=== PATIENT | female | born 1990 | race African-American/Black ===

== ENCOUNTER 2016-08-27 23:37 | Emergency (ER) | payer SELFPAY ==
--- NOTE | ~2016-08-27 | CR210 ---
[facility] A Service of [facility] & [facility] RADIOLOGY TEXT RESULTS PATIENT: POLY SHAY LOCATION: [facility] : [birth year] UNIT #: [id number] AGE: [address]: Jeimy Hankins MD SEX: F ORDER DR: [id number] [facility] [address] [place], [place] [address] [id number] E MR#: [id number] Acc #: [id number] NAME: POLY SHAY : 1990 SEX: F STUDY DATE/TIME: 08/28/2016 0:41 UNIT: [facility] ROOM: STUDY DESCRIPTION: CR Ribs Uni 2 View W PA Ch Lt Attending Physician: Jeimy Hankins M.D. Ordering Physician: Jeimy Hankins M.D. Primary Care Physician: No Primary Care Physician MEDICAL IMAGING REPORT This report is preliminary unless electronic signature is present EXAM Frontal chest and a left rib series, 08/28/2016. INDICATIONS Rib pain and cough and shortness of air in a 26-year-old female for 2 days since Saturday. TECHNIQUE Frontal chest and 2 views left ribs. COMPARISON 04/28/2016 FINDINGS Cardiac silhouette within normal limits for technique. The vascularity is unremarkable. Lungs clear. No pneumothorax. No rib fracture. IMPRESSION 1. Negative frontal chest and left rib series. Dictated by... Jhonathan Leal M.D. THIS IS AN ELECTRONICALLY VERIFIED REPORT Jhonathan Leal M.D. at 08/28/2016 9:58 PM Livan TD: 08/28/2016 09:53 JOB #: [id number] MEDICAL IMAGING REPORT Page 1 of 1 COPY
[2016-08-28 00:01] LABS: BASOPHIL% 0.6 % (0-2.5); EOSINOPHIL# 0.1 X10e3 (0-0.7); EOSINOPHIL% 0.8 % (0.0-7.0); HEMATOCRIT 38.1 % (35.0-45.0); HEMOGLOBIN 12.4 gm/dL (12.0-16.0); MEAN CORPUSCULAR HGB CONC 32.6 g/dL (30-36); MEAN PLATELET VOLUME 7.5 FL (6.5-11.5); MONOCYTE# 0.5 X10e3 (0-1.0); MONOCYTE% 7.3 % (3.0-12.0); NEUTROPHIL# 4.5 X10e3 (1.5-7.1); NEUTROPHIL% 63.3 % (40-75); PLATELET COUNT 239 X10e3 (140-420); RED BLOOD COUNT 4.42 X10e (3.90-5.30); RED CELL DISTRIBUTION WIDTH 13.6 % (11.0-15.5); WHITE BLOOD COUNT 7.1 X10e3 (4.0-10.5)
[2016-08-28 00:02] LABS: DIFF IND NO
[2016-08-28 00:20] LABS: BUN/CREATININE RATIO 12.5; CALCIUM SERUM 8.8 mg/dL (8.4-10.2); CREATININE SERUM 1.2 mg/dL (0.6-1.4); GLOM FILT RATE Estimated 71.2 mL/min (>60); POTASSIUM 3.8 mmol/L (3.5-5.1)
== END 2016-08-28 03:09 | disposition home or self-care (01) ==
LOC: CED 23:37
PROVIDERS: Emergency Medicine
DX: R07.81 Pleurodynia (principal); R05 Cough; R06.02 Shortness of breath; W19.XXXA Unspecified fall, initial encounter
CPT/HCPCS: 36415; 71101; 80048; 85025; 85379; 94640; 99284

== ENCOUNTER 2016-10-08 23:59 | Emergency (ER) | payer OTHER ==
--- NOTE | ~2016-10-08 | EKG ---
PATIENT: POLY SHAY UNIT #: [id number] Ventricular Rate: 76 BPM Atrial Rate: 76 BPM P-R Interval: 154 ms QRS Duration: 84 ms Q-T Interval: 376 ms QTC Calculation(Bezet): 423 ms P [place]: 29 degrees Calculated R [place]: 47 degrees Calculated T [place]: 38 degrees Diagnosis Line: Normal sinus rhythm Diagnosis Line: Normal ECG Diagnosis Line: No previous ECGs available Diagnosis Line: Confirmed by VIVIANE ROBERSON MD ([id number]) on 10/10/2016 Diagnosis Line: 9:49:53 AM INTERPRETING MD: KAROL FREITAS
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
== END 2016-10-09 00:25 | disposition home or self-care (01) ==
LOC: CFTX 23:59
DX: S10.93XA Contusion of unspecified part of neck, initial encounter (principal); S20.211A Contusion of right front wall of thorax, initial encounter; F17.210 Nicotine dependence, cigarettes, uncomplicated; Y08.89XA Assault by other specified means, initial encounter; Y92.009 Unspecified place in unspecified non-institutional (private) residence as the place of occurrence of the external cause
CPT/HCPCS: 71100; 93005; 99283